=== PATIENT | female | born 1965 | race Caucasian/White ===

== ENCOUNTER 2020-09-04 11:58 | Emergency (ER) | payer BC, SELFPAY ==
--- NOTE | ~2020-09-04 | XR_ITS ---
EXAMINATION: XR chest 1V portable DATE: 09/04/2020 13:18 INDICATION: Weakness. TECHNIQUE: A single frontal view of the chest was obtained. COMPARISON: None. FINDINGS: There are mild airspace opacities in left mid and lower lung zones. No pleural effusion or pneumothorax. The heart size is normal. There is a small hiatal hernia. IMPRESSION: 1. Mild airspace opacities in left mid and lower lung zones, consistent with pneumonia. 2. Small hiatal hernia. Reviewed, dictated and finalized at location B. IGN CLERK IMPRESSION: 1. Mild airspace opacities in left mid and lower lung zones, consistent with pn eumonia. 2. Small hiatal hernia.
[2020-09-04 12:01] VITALS: BP 167/85; PULSE 88; RESP 21; TEMP 37.1; O2SAT 100
[2020-09-04 12:16] LABS: Basophils Percent Auto 0.2 % (0.2-1.2); Eosinophils Percent Auto 0.8 % (0-4.4); Hematocrit 40.9 % (37.0-47.0); Immature Granulocyte Absolute 0.01 K/mm3 (0.00-0.031); Immature Granulocyte Percent A 0.2 % (0-0.5); Lymphocytes Absolute Auto 0.89 K/mm3 (0.9-3.2); Lymphocytes Percent Auto 17.1 % (18.3-44.2); Mean Corpuscular HGB Conc 34.2 g/dl (32-36); Mean Corpuscular Hemoglobin 30.1 pg (26-34); Mean Platelet Volume 10.3 fl (7.4-10.4); Monocytes Absolute Auto 0.4 K/mm3 (0.1-0.6); Monocytes Percent Auto 6.9 % (2.6-8.5); Neutrophils Absolute Auto 3.9 K/mm3 (1.3-6.7); Neutrophils Percent Auto 74.8 % (45.5-73.1); Platelet Count Result 141 k/mm3 (150-375); Red Blood Count 4.65 M/mm3 (4.2-5.4); Red Cell Distribution Width 11.7 % (11.5-14.5); White Blood Count 5.2 K/mm3 (4.5-10.0)
--- NOTE | 2020-09-04 12:22 | ECG_ITS ---
Measurements Intervals [place] Rate: 80 P: 52 [place]: 136 QRS: 20 QRSD: 72 T: 19 QT: 383 QTc: 442 Interpretive Statements SINUS RHYTHM BORDERLINE ST-T WAVE ABNORMALITY- ANTEROLAT/INF LEADS BORDERLINE ECG Electronically Signed On 09-04-2020 13:11:38 [employer]OUNT[employer] HELPER by Kenny Roque D.O.
--- NOTE | 2020-09-04 12:23 | ED.GENADULT ---
HPI - General Adult General Chief complaint: Nausea/Vomiting/Diarrhea Stated complaint: fever, bodyaches Time Seen by Provider: 09/04/20 12:06 Source: patient Mode of arrival: ambulatory Limitations: no limitations History of Present Illness HPI narrative: This patient is a 55 year old female who presents for evaluation of generalized weakness for 1 week. She reports body aches and low grade fever for 1.5 week. She reports tmax 100.1 over the weekend. She has not had anything higher then 99F since. She reports nausea and today she is having vomiting. SHe denies uri symptoms, sore throat, chest pain, cough, shortness of breath, abdominal pain, diarrhea or UTI symptoms. Related Data Home Medications Medication Instructions Recorded Confirmed calcium carbonate 500 mg calcium 500 mg PO BID 02/13/20 (1,250 mg) chewable tablet metoprolol succinate 25 mg 25 mg PO DAILY 02/13/20 tablet,extended release 24 hr multivitamin,gi-[id number]-[id number] 1 tablet PO DAILY 02/13/20 Allergies Allergy/AdvReac Type Severity Reaction Status Date / Time Cephalosporins Allergy Mild Hives / Verified 09/04/20 12:05 Red Face Penicillins Allergy Mild Hives / Verified 09/04/20 12:05 Red Face Sulfa (Sulfonamide Allergy Mild HIVES Verified 09/04/20 12:05 Antibiotics) amoxicillin Allergy Unknown Unknown Verified 09/04/20 12:05 cefprozil Allergy Unknown Unknown Verified 09/04/20 12:05 sulfanilamide Allergy Unknown Unknown Verified 09/04/20 12:05 Review of Systems Review of Systems: All systems reviewed & are unremarkable except as noted in HPI and below Constitutional: Constitutional: Reports chills, Reports fatigue and Reports fever(s) Cardiovascular: Cardiovascular: Denies chest pain Respiratory: Respiratory: Denies cough and Denies dyspnea Gastrointestinal: Gastrointestinal: Denies abdominal pain, Denies diarrhea, Reports nausea and Reports vomiting Genitourinary: Genitourinary: Denies hematuria and Denies dysuria Musculoskeletal: Musculoskeletal: Denies back pain Integumentary/Breasts: Skin/Breast: Denies rash PMFSH Past Medical History Medical History (Updated 09/04/20 @ 16:19 by Sumaya Oliva MD) Hypertension Migraine Family History Family History Mother Hypertension Family history of malignant neoplasm of ovary Father Family history of malignant neoplasm of thyroid Sibling Family history of malignant neoplasm of thyroid Social History Social History Smoking status: Never smoker Second hand tobacco smoke exposure: No Alcohol intake: never Gender identity (if verbalized by the patient): Female Exam Const: General: no acute distress and alert Orientation/consciousness: patient oriented x3 HENMT: Head: normocephalic and atraumatic Ears: TM's normal bilaterally Face and sinus: face symmetric Mouth: Yes Normal oral and palatal mucosa present, Yes lip normal, Yes oropharynx normal and Yes moist mucous membranes Throat: posterior oropharynx normal, tonsils normal and uvula midline Eyes: EOM: EOMs intact bilaterally Resp: Effort & Inspection: normal respiratory effort and no retractions Auscultation: clear to auscultation bilaterally Cardio: Rate: regular rate Rhythm: regular rhythm Heart sounds: no murmurs GI: GI Palp: Yes Soft to palpation, No Tenderness to palpation present (GI) and No Guarding due to palpation present (GI) Auscultation: normal bowel sounds Skin: General skin exam: normal color Rashes: no rashes Neuro: General: patient oriented x3 and moves all extremities Extrem: General: normal to inspection Psych: Mental Status: mental status grossly normal Affect: normal affect Course MAKE UP ARTIST/PA Physician Supervision Patient has had no vomiting. She was able to tolerate PO challenge. I Discussed that she was found to have pneumonia so she was given
[2020-09-04] MEDS: ONDANSETRON INJ 4 MG/2 ML VIAL IV PUSH (12:29)
[2020-09-04] MEDS: LACTATED RINGERS 1,000 ML 999 ML IV CONT (12:29)
[2020-09-04 12:31] LABS: Alanine Aminotransferase 30 U/L (4-35); Albumin Level 4.3 g/dL (3.5-5.1); Alkaline Phosphatase 92 U/L (38-126); Anion Gap 10 mmol/L (8-16); Aspartate Amino Transferase 42 U/L (14-36); Bilirubin,Total 0.4 mg/dL (0.2-1.3); Blood Urea Nitrogen 17 mg/dL (7-17); Calcium 9.1 mg/dL (8.4-10.2); Carbon Dioxide 27 mmol/L (22-30); Chloride 103 mmol/L (98-107); Estimated Glomerular Filt Rate > 60; Glucose 120 mg/dL (65-105); Lipase 55 U/L (23-300); Potassium 3.7 mmol/L (3.4-5.0); Sodium 140 mmol/L (137-145)
[2020-09-04 12:39] LABS: Creatine Kinase 50 U/L (30-135)
[2020-09-04 12:40] LABS: CRP 1.4 mg/dL (<1.0)
[2020-09-04 13:16] VITALS: BP 158/90; PULSE 81; RESP 12; O2SAT 100
[2020-09-04 13:20] LABS: Add Urine Microscopic? YES; Appearance Urine Clear (Clear); Bilirubin Urine Negative (Negative); Blood Urine Negative (Negative); Color Urine Straw (Yellow); Glucose Urine UA Negative (Negative); Ketones Urine Negative (Negative); Leukocyte Esterase Ur Trace LEU/UL (Negative); Mucus Urine Rare /lpf; Nitrate Urine Negative (Negative); Protein Urine Negative (Negative); RBC Urine 0-2 /hpf (0-2); Specific Grav Ur 1.012 (1.001-1.035); Squamous Epithelial Cell Urine Rare /hpf (Few); Urobilinogen Urine Negative mg/dL (<2.0); WBC Urine 0-3 /hpf
[2020-09-04] MEDS: diphenhydrAMINE HCl INJ 50 MG/ML VIAL 25 MG IV PUSH (13:57)
[2020-09-04 13:58] VITALS: BP 157/92; PULSE 77; RESP 15; O2SAT 99
[2020-09-04] MEDS: METOCLOPRAMIDE HCL INJ 10 MG/2 ML VIAL IV PUSH (13:58)
[2020-09-04 14:52] VITALS: BP 128/82; PULSE 79; RESP 14; O2SAT 98
[2020-09-04 15:51] VITALS: BP 135/82; PULSE 77; RESP 15; O2SAT 100
[2020-09-04 16:36] VITALS: BP 130/83; PULSE 84; RESP 18; O2SAT 100
[2020-09-04 21:57] LABS: SARS-CoV-2 RNA PCR Negative
== END 2020-09-04 16:39 | disposition home or self-care (01) ==
PROVIDERS: Emergency Provider General Practice; Family Provider Physician Assistant; PCP Physician Assistant
DX: J18.9 Pneumonia, unspecified organism (principal); Z20.828 Contact with and (suspected) exposure to other viral communicable diseases; E86.0 Dehydration; I10 Essential (primary) hypertension
CPT/HCPCS: 36415; 71045; 80053; 81001; 82550; 83690; 85025; 86140; 87804; 93005; 96361; 96365; 96366; 96375; 99284; C9803; J1200; J1956; J2405; J2765; J7120; U0003; U0005

== ENCOUNTER → 2020-09-17 11:11 | Outpatient (CLI) | payer BC, SELFPAY ==
--- NOTE | ~2020-09-17 | XR_ITS ---
XR chest 2V DATE: 09/17/2020 11:33 INDICATION: Cough. History of pneumonia. TECHNIQUE: 2 views COMPARISON: 09/04/2020 portable AP chest FINDINGS: Bilateral hyperinflation, suggesting chronic obstructive pulmonary disease. No pulmonary infiltrate or consolidation, pleural effusion or pulmonary vascular congestion or pneumo thorax is detected. Small opacities overlie the upper lung zones and the first costochondral junctions, possibly skeletal in origin. CT thorax is recommended to exclude any possible small pulmonary mass lesion. No hilar or mediastinal enlargement. Normal heart size. No pulmonary vascular congestion or pleural effusion. No pneumothorax. Diffuse osteopenia. IMPRESSION: Bilateral hyperinflation suggesting COPD Probable first costochondral junction bony densities overlying the apices; CT thorax is recommended t o exclude any possible upper lobe mass Reviewed, dictated and finalized at location A. E TRIMMER IMPRESSION: Bilateral hyperinflation suggesting COPD Probable first costochondral junction bony densities overlying the apices; CT t horax is recommended to exclude any possible upper lobe mass
== END ==
PROVIDERS: PCP Physician Assistant; Visit Provider Family Medicine
DX: R05 Cough (principal); R91.8 Other nonspecific abnormal finding of lung field
CPT/HCPCS: 71046

== ENCOUNTER → 2020-09-19 13:13 | Outpatient (CLI) | payer BC, SELFPAY ==
--- NOTE | ~2020-09-19 | CT_ITS ---
EXAMINATION: CT diagnostic chest wo con DATE: 09/19/2020 13:28 INDICATION: Abnormal chest x-ray TECHNIQUE: Computed tomography (CT) of the chest was performed without intravenous contrast. The dose -length product was 157.51 mGy-cm. Automated exposure control and iterative reconstruction technique were employed. COMPARISON: Chest x-ray dated 09/17/2020 FINDINGS: No thoracic lymphadenopathy. No pleural or pericardial effusion. Heart size normal. Small h iatal hernia. Mildly prominent costochondral junction bilaterally at the first rib accounting for density seen on c hest x-ray. There are a few areas of patchy groundglass opacities in the left lower lobe. No endobron chial lesions. The upper abdomen is unremarkable. No acute osseous abnormality. IMPRESSION: 1. Patchy left lower lobe groundglass opacities which may represent atelectasis, small airway disease or less likely developing pneumonia. Reviewed, dictated and finalized at location A. RIST IMPRESSION: 1. Patchy left lower lobe groundglass opacities which may represent atelectasis , small airway disease or less likely developing pneumonia.
== END ==
PROVIDERS: PCP Physician Assistant; Visit Provider Family Medicine
DX: R91.8 Other nonspecific abnormal finding of lung field (principal)
CPT/HCPCS: 71250

== ENCOUNTER 2023-12-08 00:39 | Day surgery (SDC) | payer BC, SELFPAY ==
[2023-09-02 11:10] VITALS: BMI 24.0
[2023-11-24 15:16] VITALS: BMI 24.2
[2023-12-08 06:58] VITALS: BP 160/81; PULSE 69; RESP 18; TEMP 36.1; O2SAT 100
[2023-12-08] MEDS: LACTATED RINGERS 1,000 ML 150 ML IV CONT (07:05)
--- NOTE | 2023-12-08 07:27 | WPDANESEPPF ---
Anes - Initial Pre Proc Eval Procedure: Operation Date: 12/08/23 08:00 Proposed Procedures p Screening Colonoscopy - Ryley Rawls MD Date/Time: 12/08/23 07:27 Surgeon: Ryley Rawls MD Pre Op Diagnosis: neoplasm screening Patient Data Age: 58 Gender: F Height: 1.63 m Weight: 64.2 kg Last Vital Signs Temp 97 F L 12/08/23 06:58 Pulse 69 12/08/23 06:58 Resp 18 12/08/23 06:58 BP 160/81 H 12/08/23 06:58 Pulse Ox 100 12/08/23 06:58 O2 Del Method Room Air 12/08/23 06:58 Allergies Allergy/AdvReac Type Severity Reaction Status Date / Time Cephalosporins Allergy Mild Hives / Verified 12/08/23 06:56 Red Face Penicillins Allergy Mild Hives / Verified 12/08/23 06:56 Red Face Sulfa (Sulfonamide Allergy Mild HIVES Verified 12/08/23 06:56 Antibiotics) amoxicillin Allergy Unknown Unknown Verified 12/08/23 06:56 cefprozil Allergy Unknown Unknown Verified 12/08/23 06:56 sulfanilamide Allergy Unknown Unknown Verified 12/08/23 06:56 amlodipine AdvReac Unknown Joint Pain Verified 12/08/23 06:56 losartan AdvReac Unknown Dizziness Verified 12/08/23 06:56 Home Medications Medication Instructions Recorded Confirmed Type calcium carbonate (Calcium 500) 500 mg PO BID 02/13/20 09/07/23 History multivitamin,[id number]-[id number] 1 tablet PO DAILY 02/13/20 09/07/23 History (Complete Multivitamin tablet) escitalopram oxalate 10 mg tablet 10 mg PO DAILY 03/11/21 09/07/23 History (Lexapro) fluticasone propionate 50 1 spray intranasal DAILY #16 grams 02/02/23 09/07/23 Rx mcg/actuation nasal spray,suspension (Allergy Relief (fluticasone)) rizatriptan 10 mg disintegrating 10 mg PO ONCE 02/02/23 09/07/23 History tablet metoprolol tartrate 25 mg tablet 25 mg PO BID 90 days #180 tabs 10/14/23 11/24/23 Rx atorvastatin 20 mg tablet See Rx Instructions .Route 11/11/23 11/24/23 Rx .COMPLEX #90 tabs Patient hx anesthesia problems: none Family hx anesthesia problems: none Results Review: All pre-operative results and documents have been reviewed as part of the pre-operative evaluation. [facility] Past Medical History Medical History Allergic rhinitis Anxiety disorder Hypertension Migraine Osteoporosis Supraventricular tachycardia Vitamin D deficiency Family History Family History Mother Hypertension Family history of malignant neoplasm of ovary Atrial fibrillation Heart disease Father Family history of malignant neoplasm of thyroid Hypertension Dementia Sibling Family history of malignant neoplasm of thyroid Social History Social History Smoking status: Never smoker Second hand tobacco smoke exposure: No Alcohol intake: never Substance use: never Substance use type: does not use Lack of Transportation: No Lack of Food: Never True Current Housing: I Have Housing Concerned About Future Housing: No Difficulty Paying Gas/Electric Bills: No Difficulty Paying for Meds: No Currently Unemployed: No Education: High School Diploma/GED Difficulty w/ Childcare or Family Care: No Living arrangements: with family Occupation/Education: unemployed Gender identity (if verbalized by the patient): Female Sexual Orientation (if Verbalized by the Patient): Straight or Heterosexual Spiritual care concerns: No Anes - Eval Final PreProcedure Day of Procedure 12/08/23 07:27 Patient weight: normal Heart: regular rate and rhythm Lungs: clear to auscultation Airway: Mallampati scale class II Neurological: alert and oriented Last oral intake: >/= 8 hours ASA classification: III Emergent: no Anesthetic plan: proceed Anesthesia type and monitoring: general GIVS and standard monitoring Results Review: All pre-operative results and docum
--- NOTE | 2023-12-08 07:49 | PM.HPGS ---
History of Present Illness History of Present Illness Consent: Risks, benefits, and alternatives have been discussed and questions answered. Patient agrees to proceed with procedure. Chief complaint: neoplasm screening Narrative: Zoe Galaviz is a 58 year old female here for screening colonoscopy, last one 7 years ago Review of Systems Review of Systems: All systems reviewed & are unremarkable except as noted in HPI and below PMFSH Past Medical History Medical History (Updated 12/08/23 @ 07:51 by Ryley Rawls MD) Allergic rhinitis Anxiety disorder Colon cancer screening Hypertension Migraine Osteoporosis Supraventricular tachycardia Vitamin D deficiency Family History Family History Mother Hypertension Family history of malignant neoplasm of ovary Atrial fibrillation Heart disease Father Family history of malignant neoplasm of thyroid Hypertension Dementia Sibling Family history of malignant neoplasm of thyroid Social History Social History Smoking status: Never smoker Second hand tobacco smoke exposure: No Alcohol intake: never Substance use: never Substance use type: does not use Lack of Transportation: No Lack of Food: Never True Current Housing: I Have Housing Concerned About Future Housing: No Difficulty Paying Gas/Electric Bills: No Difficulty Paying for Meds: No Currently Unemployed: No Education: High School Diploma/GED Difficulty w/ Childcare or Family Care: No Living arrangements: with family Occupation/Education: unemployed Gender identity (if verbalized by the patient): Female Sexual Orientation (if Verbalized by the Patient): Straight or Heterosexual Spiritual care concerns: No Meds Home Medications and Allergies Home Medications Medication Instructions Recorded Confirmed Type calcium carbonate (Calcium 500) 500 mg PO BID 02/13/20 09/07/23 History multivitamin,ao-oiyh-[id number] 1 tablet PO DAILY 02/13/20 09/07/23 History (Complete Multivitamin tablet) escitalopram oxalate 10 mg tablet 10 mg PO DAILY 03/11/21 09/07/23 History (Lexapro) fluticasone propionate 50 1 spray intranasal DAILY #16 grams 02/02/23 09/07/23 Rx mcg/actuation nasal spray,suspension (Allergy Relief (fluticasone)) rizatriptan 10 mg disintegrating 10 mg PO ONCE 02/02/23 09/07/23 History tablet metoprolol tartrate 25 mg tablet 25 mg PO BID 90 days #180 tabs 10/14/23 11/24/23 Rx atorvastatin 20 mg tablet See Rx Instructions .Route 11/11/23 11/24/23 Rx .COMPLEX #90 tabs Allergies Allergy/AdvReac Type Severity Reaction Status Date / Time Cephalosporins Allergy Mild Hives / Verified 12/08/23 06:56 Red Face Penicillins Allergy Mild Hives / Verified 12/08/23 06:56 Red Face Sulfa (Sulfonamide Allergy Mild HIVES Verified 12/08/23 06:56 Antibiotics) amoxicillin Allergy Unknown Unknown Verified 12/08/23 06:56 cefprozil Allergy Unknown Unknown Verified 12/08/23 06:56 sulfanilamide Allergy Unknown Unknown Verified 12/08/23 06:56 amlodipine AdvReac Unknown Joint Pain Verified 12/08/23 06:56 losartan AdvReac Unknown Dizziness Verified 12/08/23 06:56 Vital Signs Vital Signs - 24 hr 12/08/23 06:58 Temperature 97 F L Pulse Rate 69 Respiratory Rate 18 Blood Pressure 160/81 H Pulse Oximetry 100 Oxygen Delivery Room Air Exam Const: General: comfortable and no acute distress HENMT: Face/Nose/Sinus: Normal nares present Eyes: General: appearance normal, both eyes and all related structures Neck: Neck: no JVD Resp: Auscultation: clear to auscultation bilaterally Cardio: Rate: regular rate Rhythm: regular rhythm GI: Inspection: non-distended GI Palp: Yes Soft to palpation Skin: General skin exam: normal color Neuro: General: gait normal Speech: normal speech Extrem:
[2023-12-08 08:10] VITALS: BP 126/80; PULSE 69; RESP 19; O2SAT 99
[2023-12-08 08:20] VITALS: BP 121/77; PULSE 64; RESP 16; O2SAT 100
[2023-12-08 08:30] VITALS: BP 146/82; PULSE 60; RESP 13; O2SAT 100
== END 2023-12-08 08:39 | disposition home or self-care (01) ==
PROVIDERS: PCP Family Medicine; Visit Provider Internal Medicine Gastroenterology
PROC: 0DJD8ZZ Inspection of Lower Intestinal Tract, Via Natural or Artificial Opening Endoscopic (ICD-10-PCS; CPT 45378; principal; 2023-12-08 08:00)
DX: Z12.11 Encounter for screening for malignant neoplasm of colon (principal); K63.5 Polyp of colon; K64.8 Other hemorrhoids; I10 Essential (primary) hypertension; E55.9 Vitamin D deficiency, unspecified; F41.9 Anxiety disorder, unspecified; M81.0 Age-related osteoporosis without current pathological fracture
CPT/HCPCS: 45385; 88305; J2704; J7120

== ENCOUNTER 2023-12-09 10:12 | Outpatient (CLI) | payer BC, SELFPAY ==
--- NOTE | ~2023-12-09 | US_ITS ---
EXAMINATION: US pelvic complete w TV DATE: 12/09/2023 10:29 INDICATION: Postmenopausal bleeding Comparison:No prior studies for comparison. TECHNIQUE: Multiple transabdominal and endovaginal sonographic images of the pelvis performed. FINDINGS: The uterus measures 7.7 x 4.4 x 5.1 cm. The endometrial complex measures 3.6 mm. The ovaries are not identified, likely atrophic. There is no free fluid in the pelvis. There are no abnormal masses seen on either side. IMPRESSION: 1. Unremarkable pelvic ultrasound. Reviewed, dictated and finalized at location B.
== END 2023-12-09 10:13 ==
LOC: MICIMG 10:12
PROVIDERS: PCP Obstetrics & Gynecology; Visit Provider Obstetrics & Gynecology
DX: N95.0 Postmenopausal bleeding (principal)
CPT/HCPCS: 76830; 76856

== ENCOUNTER 2023-12-22 10:31 | Outpatient (CLI) | payer BC, SELFPAY ==
--- NOTE | ~2023-12-22 | XR_ITS ---
EXAMINATION: XR ankle RT 2V DATE: 12/22/2023 10:50 INDICATION: Anterior right ankle pain. TECHNIQUE: 4 views of right ankle were obtained. COMPARISON: None. FINDINGS: Bone alignment is normal. No fracture. There is mild osteoarthritis of talonavicular joint. There is ankle soft tissue swelling. IMPRESSION: 1. Mild osteoarthritis of talonavicular joint. Reviewed, dictated and finalized at location A.
== END 2023-12-22 10:32 | disposition home or self-care (01) ==
PROVIDERS: PCP Physician Assistant; Visit Provider Physician Assistant
DX: M25.571 Pain in right ankle and joints of right foot (principal)
CPT/HCPCS: 73600

== ENCOUNTER 2024-03-24 01:02 | Day surgery (SDC) | payer BC, SELFPAY ==
[2024-03-21 15:32] VITALS: BMI 24.8
--- NOTE | 2024-03-21 17:55 | PC.NURSE ---
Report to the Outpatient Waiting Room, entrance under the green pavilion located off [facility], at time __0830 on date _[id number] . Planned Procedure Time: ___1030 . Time changes happen often and if your time is changed the preop area will call you the afternoon before. - You and your visitor will be asked to self-screen and do not enter if you have any COVID symptoms. - A mask is optional within the hospital at this time. Patients may have clear liquids (water, carbonated beverages, clear teas, apple juice) until 3 hours prior to surgery with a maximum of 20 ounces. stop at 0730 - No food from midnight until time of surgery Take the following medications with a SIP of water the morning of surgery: metoprolol, rizatriptan, lexapro, flonase DO NOT STOP ANY OF YOUR OTHER PRESCRIPTION MEDICATIONS PRIOR TO SURGERY ?EXCEPT THE FOLLOWING Medications to discontinue per physician Stop your multivitamin and calcium carbonate. Do not take today's dose or any doses until after surgery. Do not take your atorvastatin the morning of surgery._ Please no make-up, nail georgian, hairspray, perfume, deodorant, or body powder the day of surgery. No jewelry (including any body piercings) or valuables the day of surgery, leave them at home. Please take a shower or bath the night before, or the morning of, surgery with an antibacterial soap. Wear comfortable, loose fitting clothing. - Jewelry must be removed prior to entering the operating room. Rings and piercings that are not removed may be cut off. - The hospital will not accept responsibility for valuables. - Please leave all valuables, including medications, at home the day of surgery. If you are going home after surgery, a licensed regional truck driver must drive you home. - NO public transportation without another adult if you receive anesthesia. - We recommend that an adult stay with you for 24 hours following discharge. - We also recommend that you do not drive, make important decision, drink alcoholic beverages, or take any drugs that were not prescribed by your health care provider for at least 24 hours after your discharge time. Follow any additional instructions given to you from your surgeon. If you or anyone in your household have experienced Covid symptoms in the past week, please notify your surgeon or the nurse liaison at the phone number below for possible testing. Telephone instructions given to Donna/patient___and asked if any additional questions and then verbalized understanding. Patient advised to call surgeon office or pre surgery nurse liaison [phone] if any additional questions.
[2024-03-24 08:51] VITALS: BP 151/87; PULSE 68; RESP 20; TEMP 36.1; O2SAT 100
[2024-03-24] MEDS: ACETAMINOPHEN 500 MG TABLET 1000 MG PO (08:52)
--- NOTE | 2024-03-24 09:26 | WPDHPUPDATE1 ---
History and Physical Update Update Date/Time: 03/24/24 09:26 History and Physical has been reviewed, including an updated exam of the patient. There are NO changes in the patient's condition. Risks, benefits, and alternatives have been discussed and questions answered. Patient agrees to proceed with procedure.
[2024-03-24] MEDS: LACTATED RINGERS 1,000 ML 30 ML IV CONT (09:35)
--- NOTE | 2024-03-24 09:41 | WPDANESEPPF ---
Anes - Initial Pre Proc Eval Procedure: Operation Date: 03/24/24 10:30 Proposed Procedures p Hysteroscopy Dilation and Curettage with Possible Removal of Endometrial Lesions if Necessary - Lazarus Olvera MD Date/Time: 03/24/24 09:41 Surgeon: Lazarus Olvera MD Pre Op Diagnosis: post menopausal bleeding, Patient Data Age: 58 Gender: F Height: 1.63 m Weight: 65.7 kg Allergies Allergy/AdvReac Type Severity Reaction Status Date / Time Cephalosporins Allergy Mild Hives / Verified 03/22/24 11:17 Red Face Penicillins Allergy Mild Hives / Verified 03/22/24 11:17 Red Face Sulfa (Sulfonamide Allergy Mild HIVES Verified 03/22/24 11:17 Antibiotics) amoxicillin Allergy Unknown Hives Verified 03/24/24 08:47 cefprozil Allergy Unknown Hives Verified 03/24/24 08:47 sulfanilamide Allergy Unknown Hives Verified 03/24/24 08:47 amlodipine AdvReac Unknown Joint Pain Verified 03/22/24 11:17 losartan AdvReac Unknown irregular Verified 03/24/24 08:47 heart beat Home Medications Medication Instructions Recorded Confirmed Type calcium carbonate (Calcium 500) 500 mg PO BID 02/13/20 03/24/24 History multivitamin,vc-xycf-tihzkyhh 1 tablet PO DAILY 02/13/20 03/24/24 History (Complete Multivitamin tablet) fluticasone propionate 50 1 spray intranasal DAILY #16 grams 02/02/23 03/21/24 Rx mcg/actuation nasal spray,suspension (Allergy Relief (fluticasone)) rizatriptan 10 mg disintegrating 10 mg PO ONCE PRN Migraine Headache 02/02/23 03/21/24 History tablet metoprolol tartrate 25 mg tablet 25 mg PO BID 90 days #180 tabs 10/14/23 03/24/24 Rx escitalopram oxalate 10 mg tablet 10 mg PO DAILY #90 tabs 02/06/24 03/24/24 Rx (Lexapro) atorvastatin 20 mg tablet (Lipitor) 20 mg PO DAILY 03/21/24 03/24/24 History Patient hx anesthesia problems: none Family hx anesthesia problems: none Results Review: All pre-operative results and documents have been reviewed as part of the pre-operative evaluation. [facility] Past Medical History Medical History Allergic rhinitis Anxiety disorder Colon cancer screening Hypertension Migraine Osteoporosis Supraventricular tachycardia Vitamin D deficiency Family History Family History Mother Hypertension Family history of malignant neoplasm of ovary Atrial fibrillation Heart disease Father Family history of malignant neoplasm of thyroid Hypertension Dementia Sibling Family history of malignant neoplasm of thyroid Social History Social History Smoking status: Never smoker Second hand tobacco smoke exposure: No Alcohol intake: never Substance use: never Substance use type: does not use Lack of Transportation: No Lack of Food: Never True Current Housing: I Have Housing Concerned About Future Housing: No Difficulty Paying Gas/Electric Bills: No Difficulty Paying for Meds: No Currently Unemployed: No Education: High School Diploma/GED Difficulty w/ Childcare or Family Care: No Living arrangements: with family Occupation/Education: unemployed Gender identity (if verbalized by the patient): Female Sexual Orientation (if Verbalized by the Patient): Straight or Heterosexual Spiritual care concerns: No Anes - Eval Final PreProcedure Day of Procedure 03/24/24 09:41 Patient weight: normal Heart: regular rate and rhythm Lungs: clear to auscultation Neurological: alert and oriented Last oral intake: >/= 8 hours ASA classification: III Emergent: no Anesthetic plan: proceed Anesthesia type and monitoring: general GIVS and standard monitoring Results Review: All pre-operative results and documents have been reviewed as part of the pre-operative evaluation. Informed Consent: The patient's anesthetic plan and its attendant r
[2024-03-24] MEDS: CLINDAMYCIN 900 MG/D5W 50 ML 900 MG/50 ML PIGGYBACK 50 MG IVPB (10:06)
[2024-03-24 10:41] VITALS: BP 106/72; PULSE 68; RESP 14; O2SAT 99
[2024-03-24 11:10] VITALS: BP 106/72; PULSE 68; RESP 14; O2SAT 99
[2024-03-24 11:40] VITALS: BP 124/79; PULSE 69; RESP 14
--- NOTE | 2024-03-24 14:28 | P.OP_ITS ---
Procedure Note - Detailed Date of Procedure 03/24/24 Pre-op Diagnosis post menopausal bleeding, endometrial polyp Post-op Diagnosis Same Procedure Performed Hysteroscopy dilation and curettage with removal of small upper endometrial polyp. Surgeon Lazarus Olvera MD Anesthesia MAC and Local Indications Postmenopausal bleeding with eindoemtrial polyp on biopsy. Findings Small endometrial polyp in upper right uterus. Description of Procedure After informed consent was obtained. She was taken to operating room and IV sedation administered. She was prepped and draped in sterile fashion. Attention was turned to vagina. Speculum inserted. Single tooth tenaculum placed on cervix. Uterus sound to 8 cm. Cervix dilator size four inserted. The hysteroscope inserted and advanced into uterus under visualization. A small polyp lesion visualized, upper right uterus near cornu. The small aveta instrument used and the lesion was removed completely. A curettage was then performed with minimal tissue obtained. Hyster oscope removed. Patient tolerated procedure well. Sponge count correct. She was taken to recovery. Estimated Blood Loss 5 Drains No Packing No Pathology Yes (shavings and endometrial curettings) Complications No immediate complications Condition Stable Disposition Same day [facility] Billing Surgery - Charge Forward: Surgery Billing
== END 2024-03-24 12:02 | disposition home or self-care (01) ==
PROVIDERS: PCP Family Medicine; Visit Provider Obstetrics & Gynecology
PROC: 0U5B8ZZ Destruction of Endometrium, Via Natural or Artificial Opening Endoscopic (ICD-10-PCS; CPT 58563; principal; 2024-03-24 10:30)
DX: N95.0 Postmenopausal bleeding (principal); N84.0 Polyp of corpus uteri; I10 Essential (primary) hypertension; M81.0 Age-related osteoporosis without current pathological fracture; E55.9 Vitamin D deficiency, unspecified; F41.9 Anxiety disorder, unspecified; I47.10 Supraventricular tachycardia, unspecified
CPT/HCPCS: 58558; 88305; A9270; J1100; J2250; J2405; J2704; J3010; J7120

== ENCOUNTER 2024-06-28 08:47 | Outpatient (CLI) | payer BC, SELFPAY ==
--- NOTE | ~2024-06-28 | XR_ITS ---
XR hand LT min 3V Ordering provider: David Benjamin MD History: . 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 . Comparison: None. FINDINGS: BONES: No acute fracture or dislocation. JOINT SPACES: Narrowing of the distal interphalangeal joints. Osteoarthritic changes of the first car pometacarpal joint also noted. SOFT TISSUES: Unremarkable. IMPRESSION: No acute osseous abnormality left hand. Polyarticular osteoarthritic changes. Reviewed, dictated and finalized at location A. ST BIOMETRICS PROFESSOR
== END 2024-06-28 08:48 | disposition home or self-care (01) ==
PROVIDERS: PCP Family Medicine; Visit Provider Plastic Surgery
DX: M19.042 Primary osteoarthritis, left hand (principal)
CPT/HCPCS: 73130

== ENCOUNTER 2025-05-25 14:44 | Outpatient (CLI) | payer BC, SELFPAY ==
--- NOTE | ~2025-05-25 | DEXA_ITS ---
Bone Density Report Name: RODO FLORES Age: 60 Sex: Female Ethnicity: White Date of : 1965 Indication: postmenopausal osteoporosis; Referring Provider: FREDY WHITE Study: Bone densitometry was performed. Exam Date: May 25, 2025 Accession number: [id number] Bone Density: Region BMD T-score Z-score Classification AP Spine(L1-L4) 0.671 -3.4 -1.9 Osteoporosis Femoral Neck (Left) 0.559 -2.6 -1.3 Osteoporosis Total Hip (Left) 0.657 -2.3 -1.3 Osteopenia Femoral Neck (Right) 0.610 -2.2 -0.8 Osteopenia Total Hip (Right) 0.663 -2.3 -1.3 Osteopenia Total Hip Mean 0.660 -2.3 -1.3 Osteopenia World Health Organization criteria for BMD impression classify patients as: Normal (T-score at or above -1.0), Osteopenia (T-score between -1.0 and -2.5), or Osteoporosis (T-score at or below -2.5). 10-year Fracture Risk: FRAX not reported because: Some T-score for Spine Total or Hip Total or Femoral Neck at or below -2.5 Previous Exams: -- Region Exam Age BMD T-score BMD Change BMD Change Date g/cm2 vs Baseline vs Previous -- AP Spine (L1-L4) 05/25/2025 60 0.671 -3.4 -4.9%# -4.9%# 02/15/2019 53 0.705 -3.1 Total Hip(Left) 05/25/2025 60 0.657 -2.3 -3.0% -3.0% 02/15/2019 53 0.677 -2.2 Total Hip(Right) 05/25/2025 60 0.663 -2.3 -1.3% -1.3% 02/15/2019 53 0.672 -2.2 -- *Denotes significance at 95% confidence level, LSC for AP Spine = 0.022 g/cm2, LSC for Total Hip = 0.027 g/cm2 # Denotes dissimilar scan types or analysis methods Clinical Information Provided by Patient: Has used the following medications: Vitamin D, Calcium Patient maximum height was 64 Menopause Age: 56 No regular weight bearing exercise Drinks caffeinated beverages Onset of menses at age 15 Number of children 2 Impression: The patient has osteoporosis, based on the Total Spine T-score. Unable to evaluate interval change due to the use of different scan modes. Discussion: INCREASED RISK OF FRACTURE. BONE DENSITY IS UNDESIRABLY LOW AT ONE OR MORE SKELETAL SITES, CONSISTENT WITH POSTMENOPAUSAL OSTEOPOROSIS. This patient's lowest T-score meets the World Health Organization's (WHO) criteria for osteoporosis at one or more sites (T-score -2.5 or below). In untreated patients, the risk of osteoporotic fracture increases approximately two-fold for each 1.0 SD decrease in T-score. Low bone density is not the only risk factor for fracture; also consider factors such as patient's age, frailty or poor health, risk of falling, risk of injury, previous osteoporotic fracture, family history of osteoporosis, cigarette smoking, low body weight, etc. Not everyone with low bone mineral density has osteoporosis; osteomalacia and other metabolic bone disorders should also be considered. Patients who have osteoporosis should be evaluated for specific diseases and conditions (secondary causes) that may cause or contribute to bone loss. The [place] [employer] (AACE) and National Osteoporosis Foundation (NOF) recommend pharmacologic intervention for all postmenopausal women whose T-score is in this range. The patient should follow a healthful lifestyle (good nutrition with adequate calcium and vitamin D, and appropriate weight-bearing exercise). Follow-Up: Consider a repeat BMD and Vertebral Fracture Assessment (VFA) exam in 2 years or sooner if medically necessary, to reassess this patient's status. Reported by: OSVALDO on 05/25/2025 3:01:00 PM. Reviewed, dictated and finalized at location A.
== END 2025-05-25 14:45 | disposition home or self-care (01) ==
LOC: MICIMG 14:44
PROVIDERS: PCP Family Medicine
DX: M81.0 Age-related osteoporosis without current pathological fracture (principal); M85.852 Other specified disorders of bone density and structure, left thigh; M85.851 Other specified disorders of bone density and structure, right thigh
CPT/HCPCS: 77080